=== PATIENT | male | born 1935 | race Caucasian/White ===

== ENCOUNTER 2018-02-28 13:25 | Inpatient (IN) | payer MEDICARE ==
[~2018-02-28] VITALS: Ht 175.3 cm; Wt 72.1 kg
[2018-02-28] MEDS ORDERED: NORVASC10 MG PO (13:49)
[2018-02-28] MEDS ORDERED: CRESTOR40 MG PO (13:50)
[2018-02-28] MEDS ORDERED: RANITIDINE HCL150 M1 PO (13:50)
[2018-02-28] MEDS ORDERED: TRIAMTERENE-HC1 EAC3 PO (13:51)
[2018-02-28] MEDS ORDERED: FOLIC ACID0.4 MG PO (13:52)
--- NOTE | 2018-02-28 19:30 | NUR ---
HANDOFF REPORT RECEIVED FROM RN PT TO ARRIVE TO MS FLOOR WITH NURSING STAFF.
--- NOTE | 2018-02-28 19:52 | NUR ---
VITALS AND I&OS DONE AND CHARTED. HELPED PT TO THE BATHROOM AND BACK TO BED. GOT HIS BED WEIGHT. BEDSIDE TABLE AND CALL LIGHT WITHIN REACH.
--- NOTE | 2018-02-28 20:11 | NUR ---
PT ARRIVES TO MS FLOOR WITH LIEN DUNAWAY VIA STRETCHER, 1P SBA TO TRANSFER FROM STRETCHER TO BED, UP TO RESTROOM FOR 400 ML VOID. IVF INFUSING WNL, GOOD BLOOD RETURN LINE FLUSHES EASILY. PT HARD OF HEARING, ALERT AND ORIENTED X 4. ABD SOFT, TENDER IN RLQ WITH PALPATION, PT RATES PAIN 5/10, "I'M OKAY". REFUSES PRN MEDICATIONS. BOWEL TONES ACTIVE X 4. PT ON NPO DIET AT THIS TIME, EDUCATION PROVIDED, PT VERBALIZES UNDERSTANDING, OKAY FOR SIPS WATER, ICE CHIPS. CALL LIGHT IN REACH. WILL CONTINUE TO MONITOR.
--- NOTE | 2018-02-28 20:37 | NUR ---
IN ROOM TO HANG IV FLUIDS. PT DENIES NEEDS AT THIS TIME. CALL LIGHT IS WITHIN REACH.
--- NOTE | 2018-02-28 21:55 | NUR ---
IN PT ROOM FOR ABT ADMINISTRATION, INFUSING WNL. PT GIVEN SIP OF WATER WITH PO MEDICATION. URINAL IN REACH, PT HAS NO ADDL REQUESTS. EDUCATION PROVIDED RE SAFETY, TO CALL PRIOR TO OOB, VERBALIZED UNDERSTANDING. BED ALARM ON FOR SAFETY. CALL LIGHT IN REACH.
--- NOTE | 2018-02-28 22:21 | NUR ---
ENTERED PT'S ROOM BECAUSE IV WAS BEEPING, PT DENIES NEEDS AT THIS TIME.
--- NOTE | 2018-03-01 00:26 | NUR ---
CALL LIGHT ANSWERED, SBA TO RESTROOM FOR 600 ML VOID, CLEAR YELLOW URINE. PT BACK TO BED, IVF INFUSING WNL. CALL LIGHT IN REACH. LIGHTS ON REQUESTED BY PT.
--- NOTE | 2018-03-01 01:24 | NUR ---
IN PT ROOM FOR IVF ADMINISTRATION, PT AWAKE, UNABLE TO SLEEP, PT STATES CHRONIC ISSUE. VITALS COMPLETE BP 116/70 (91), HR 65 REGULAR RHYTHM. SPO2 95% ON RA, LUNGS CLEAR THROUHGOUT ALL LOBES. PT STATES PAIN 4/10 "IMPROVED" IN RLQ, ABD TENDER W PALPATION. PT DENIES NAUSEA. BOWEL TONES ACTIVE X 4, ABD SOFT. IVF INFUSING WNL. PT HAS CALL LIGHT IN REACH, NO REQUESTS AT THIS TIME.
--- NOTE | 2018-03-01 03:44 | NUR ---
CHECKED ON PT, APPEARS TO BE SLEEPING, EYES CLOSED, BREATHING NON-LABORED, IVF INFUSING. LIGHTS OFF IN ROOM.
--- NOTE | 2018-03-01 04:43 | NUR ---
PT'S IV WAS BEEPING, HE DENIES NEEDS AT THIS TIME.
--- NOTE | 2018-03-01 05:10 | NUR ---
PT ARRIVES TO MS FLOOR AT 2010, SBA IN ROOM. QUANTITY SUFFICIENT VOIDS. ABD SOFT, TENDER IN RLQ, BOWEL TONES ACTIVE THROUGHOUT SHIFT. IVF INFUSING WNL THROUGHOUT SHIFT. NPO WITH SIPS OF WATER WITH PO MEDS. PT DENIES NAUSEA, REFUSES PRN PAIN MEDICATIONS.
--- NOTE | 2018-03-01 05:29 | NUR ---
CALL LIGHT ANSWERED, SBA TO RESTROOM FOR 600 ML VOID AND BACK TO BED. GAIT STEADY. PT HAS NO REQUESTS AT THIS TIME. IVF INFUSING WNL. CALL LIGHT IN LAP. LIGHTS OFF IN ROOM.
--- NOTE | 2018-03-01 07:33 | NUR ---
HAND OFF RN NOTED THAT [facility] SENT A MESSAGE REGARDING RANITADINE DOSE LAST NIGHT. MEDICATION IS SCHEDULED FOR AM AND PM AT 0900 AND 2100. PHARAMCY CALLED TO VERIFY DOSE FOR THIS AM. PHARMACIST STATES TO GIVE 0900 DOSE SCHEDULED.
--- NOTE | 2018-03-01 07:49 | NUR ---
MORNING ASSESSMENT AND MEDICATIONS DUE. THIS RN TO BEDSIDE. DR. ROSEN AT BEDSIDE. PT STATES HE IS "FEELING BETTER" AND WANTS TO EAT. PT TALKING WITH MD ABOUT PLAN OF CARE. ASSESSMENT DONE. MEDICATIONS GIVEN ORDERED. PT REPORTS 3-4/10 PAIN AND THAT HE DOES NOT WANT PAIN MEDICATION AT THIS TIME. PT STATES HE HAS NO REQUESTS OR COMPLAINTS AT THIS TIME. PT VERBALIZES UNDERSTANDING THAT HE SHOULD CALL THE NURSE IF HE HAS A BOWEL MOVEMENT FOR SAMPLE COLLECTION. BED RAILS UP. CALL LIGHT WITHIN REACH.
--- NOTE | 2018-03-01 07:51 | NUR ---
PATIENT RESTING IN BED, RN IN ROOM. PATIENT WASHED HANDS AND FACE WITH WARM WASH CLOTH. PATIENT DENIED ORAL CARE, STATED HIS TEETH WERE AT HOME AND HE DOESNT LIKE TO USE MOUTHWASH. PATIENT STATED HE DIDNT WANT TO SHOWER TODAY HE PLANS ON GOING HOME THIS AFTERNOON. CALL LIGHT IN REACH. NO OTHER NEEDS AT THIS TIME.
--- NOTE | 2018-03-01 09:32 | NUR ---
PATIENT RESTING IN BED. PATIENT REFUSED TO GET UP TO BATHROOM STATING THAT HE HASNT HAD TO GO. THIS PHOTOCOPIER TECHNICIAN WILL REAPROACH AT A LATER TIME. CALL LIGHT IN REACH. NO OTHER NEEDS AT THIS TIME.
--- NOTE | 2018-03-01 10:30 | NUR ---
THIS RN TO ROOM TO CHECK ON PT. PT STATES HE IS "JUST RESTING." CLEAR LIQUID TRY ORDERED FOR PT. PT STATES HE IS WILLING TO TRY THE CLEAR LIQUIDS AND "MAYBE GET UP TO CHAIR AFTER THAT." PT ENCOAURGED TO GET UP WITH FISH BONING MACHINE FEEDER TODAY AND EAT WHAT HE CAN. MEDICATION GIVEN (SEE MAR). PT WATCHIGN TV AND TRYING CLEARS. BED RAILSUP. CALL LIGHT WITHIN REACH.
--- NOTE | 2018-03-01 11:12 | NUR ---
PT CALL LIGHT ON. PT STATES HE IS DONE EATING. PT ATE BROTH, JELLO AND JUICE. PT DENIES NAUSEA AT THIS TIME AND STATE HIS PAIN "BETTER THAN IT WAS." PT CONTINUES TO RATE HIS PAIN AT 3-10. FOCUSED ASSESSMENT DONE. PT ADVISED TO SPEND SOME TIME IN THE CHAIR. PT AGREES AND IS ASSISTED UP TO CHAIR. PT WATCHING TV, NO REQUESTS OR COMPLAINTS. CALL LIGHT WITHIN REACH.
--- NOTE | 2018-03-01 11:25 | NUR ---
PTS ON PHONE. THIS RN SPOKE WITH TO UPDATE HER. STATES SHE WILL BE COMING IN SOON AND STATES HER QUESTIONS HAVE ALL BEEN ANSWERED.
[2018-03-01] MEDS ORDERED: ASPIR-LOW81 MG PO (11:38)
--- NOTE | 2018-03-01 13:38 | NUR ---
PT RESTING IN BED, TV OFF RM QUIET. PT STATED THAT HE DIDN'T SLEEP WELL LAST NIGHT AND WAS GOING TO TRY AND TAKE A NAP. I EXTENDED A BLESSING AND LET PT KNOW I WILL COME BACK ANOTHER TIME. HE THANKED ME, WILL FOLLOW NEEDED
--- NOTE | 2018-03-01 14:07 | NUR ---
ABX DUE. THIS RN TO BEDSIDE. PT VISITING WITH FAMILY. EDUCATION REGARDING PTS CONDITION DONE. PT AND FAMILY VERBALIZE UNDERSTANDING. ABX STARTED. INFUSING VIA IV PUMP WITH NS FLUSH. PT CALL LIGHT WITHIN REACH. BED RAILS UP.
--- NOTE | 2018-03-01 17:52 | NUR ---
THIS GASOLINE TESTER ASSISTED PATIENT UP TO BATHROOM, BACK TO BED. PATIENT STATES HE HAS THE "GI THING GOING AGAIN" AND IS CONCERNED ABOUT IT MAKING HIM SICK AGAIN. RN NOTIFIED. RN IN ROOM. PATIENT CALL LIGHT IN REACH. NO OTHER NEEDS AT THIS TIME.
--- NOTE | 2018-03-01 18:01 | NUR ---
AFTERNOON ASSESSMENT DUE. THIS RN TO BEDSIDE. PT UP TO TOILET. PT STATES THAT HE'S HAVEING "MORE GI'S" WHEN ASKED TO EXPLAIN PT REPORTS FREQUENT LOOSE BOWEL MOVMENTS. PT STATES "THERE ISN'T PAIN LIKE BEFOR BUT THIS IS HOW IT ALL STARTED." ASSESSMENT DONE. NEW BAG OF FLUIDS HUNG. PT SIPPING AT CLEAR LIQUID TRAY. PT STATES HE HAS NO ADDITIONAL REQUESTS OR COMPLAINTS AT THIS TIME. CALL LIGHT WITHIN REACH. BED RAILS UP.
--- NOTE | 2018-03-01 18:33 | NUR ---
PT HERE FOR RLQ ABDOMINAL PAIN. STOOL SAMPLE SENT TODAY. PT UPGRADED TO CLEAR LIQUID DIET TODAY. TOLEARTING W/O NAUSEA BUT DIARRHEA STARTED AGAIN THIS EVENING. D5 LR AT 65ML/HR RUNNING IN R AC PIV. PT VERY HARD OF HEARING. STAND BY ASSIST. USES CALL LIGHT APPROPRIATLY. BLOOD PRESSURE HAS TRENDED DOWN TODAY. CONTINUE TO MONITOR.
--- NOTE | 2018-03-01 18:38 | NUR ---
AFTER HOURS PHARMACY CALLED STATING THAT THEY RECIEVED A COPY OF THE MED LIST THAT WAS BROUGHT IN BY PTS TODAY. PHARMACY STATES THAT THIS LIST WILL BE LEFT FOR THE AM ON SITE PHARAMACISTS TO RECONCILE IN THE MORNING. CHARGE NURSE CONSULTED AND AGREEABLE TO THIS PLAN OF ACTION.
--- NOTE | 2018-03-01 19:20 | NUR ---
BEDSIDE REPORT RECEIVED FROM NILESH GUPTA. PT APPEARS TO BE SLEEPING, EYES CLOSED, BREATHING NON-LABORED, HARD OF HEARING, DOES NOT AWAKEN. IVF INFUSING WNL.
--- NOTE | 2018-03-01 20:28 | NUR ---
CALL LIGHT ANSWERED, SBA BACK TO BED FROM RESTROOM. PT REPORTS LIQUID BM, PT FLUSHED TOILET, INSTRUCTED BY RN TO LEAVE STOOL FOR OBSERVATION, VERBALIZED UNDERSTANDING. CALL LIGHT IN REACH, IVF INFUSING WNL.
--- NOTE | 2018-03-01 21:50 | NUR ---
IN PT ROOM FOR ABT ADMINISTRATION. PT ASSESSMENT COMPLETE, LUNGS CLEAR THORUGHOUT ALL LOBES, PT EDUCATION PROVIDED REGARDING INCENTIVE SPIROMETER, DEMONSTRATED USE 1700 ML BEST EFFORT. PT DENIES ANY PAIN, DENIES NAUSEA. BOWEL TONES HYPERACTIVE X 4, ABD SOFT, NONTENDER W PALPATION. IV ABT INFUSING WNL. SBA TO RESTROOM FOR DIARRHEA, BROWN IN COLOR, AND CLEAR YELLOW VOID. CALL LIGHT IN REACH, LIGHTS OFF IN ROOM.
--- NOTE | 2018-03-02 00:20 | NUR ---
CHECKED ON PT, IV PUMP BEEPING, NOW INFUSING WNL. PT APPEARS TO BE SLEEPING EYES CLOSED, BREATHING NON-LABORED. LIGHTS OFF IN ROOM.
--- NOTE | 2018-03-02 01:35 | NUR ---
PHONE CALL FROM PTS , WOKE UP CONCERNED FOR PT, UPDATED NACHO ON PT'S NIGHT, UP TO RESTROOM WITH LIEN REDMOND AT THIS TIME.
--- NOTE | 2018-03-02 03:30 | NUR ---
CHECKED ON PT, APPEARS TO BE SLEEPING, EYES CLOSED, BREATHING NON-LABORED. IVF INFUSING, LIGHTS OFF IN ROOM.
--- NOTE | 2018-03-02 05:15 | NUR ---
SBA TO RESTROOM FOR VOIDS. LOOSE BMS X 3 THIS SHIFT. PT HAS DENIED NAUSEA, DENIED PAIN THROUGHOUT SHIFT. BOWEL TONES HYPERACTIVE X 4, ABD SOFT. IVF INFUSING WNL. MINIMAL PO INTAKE. USING CALL LIGHT APPROPRIATELY. ORIENTED X 3, HARD OF HEARING.
--- NOTE | 2018-03-02 05:42 | NUR ---
IV ABT INFUSING AT THIS TIME. PT AWAKE, ALERT. BOWEL TONES ACTIVE X 4, ABD SOFT, PT DENIES PAIN, DENIES NAUSEA. LUNGS CLEAR THROUGHOUT ALL LOBES, HR REGULAR RHYTHM. CSM INTACT BUE, BLE, NO EDEMA NOTED. PT DENIES TOILETING NEEDS AT THIS TIME. CALL LIGHT IN REACH, NO ADDL REQUESTS.
--- NOTE | 2018-03-02 06:54 | NUR ---
CALL LIGHT ANSWERED, SBA TO RESTROOM, PT INSTRUCTED TO USE CALL LIGHT WHEN FINISHED, VERBALIZED UNDERSTANDING. IVF INFUSING.
--- NOTE | 2018-03-02 08:49 | CONS ---
[facility] [address], [place] [address] Signed DATE OF CONSULTATION: 03/01/2018 CHIEF COMPLAINT: Right lower quadrant abdominal pain. 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 He lives with his , Amrita. He went through some a few days of diarrhea and was not feeling particularly well that seemed to be getting better and he was trying to eat, but he was having right-sided abdominal pain. He went about 3 days and really had little or nothing to eat. He finally came to emergency room for evaluation. In the emergency room, his white count was up a little bit at 13.1 with some tenderness in right lower quadrant. His lactic acid was normal at 0.9. BUN and creatinine were up a little bit at [address] scan of the abdomen and pelvis was performed without contrast. It looks like there is some thickening to the cecum with some very mild pericecal inflammation. He also has significant chronic diverticular disease, small bilateral inguinal hernias, and some degenerative disk disease at L4-L5. He was admitted to the Internal Medicine Service, given IV fluids and Rocephin and Flagyl. I was asked to see him in consultation as a general surgeon. He said this morning he is feeling better. He has a little or no pain in the right lower quadrant and was asking to eat. PAST MEDICAL HISTORY: Chronic renal failure, brain aneurysm, skin cancer, hypertension, gastroesophageal reflux disease, diverticulosis, and nephrolithiasis. 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 SOCIAL HISTORY: He does not smoke or drink. He is to Amrita at [phone]. They live in a house and they both drive. He has 4 children and 2 stepchildren. 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 She is a family nurse practitioner with the [facility], [facility]. They prefer the [facility] here in town. FAMILY HISTORY: Mom of old age. Dad of mustard gas. REVIEW OF SYSTEMS: He had 10 systems reviewed and he said no metal in the body. ALLERGIES: None. Electronically Signed By: DOLLY ROSEN MD 03/02/18 0849 PATIENT NAME: DAVID JOHNSON CONSULTATION DATE OF : 37 REPORT #: [id number] PHYSICIAN: DOLLY ROSEN MD PCP: INA LEE REPORT IS CONFIDENTIAL AND NOT TO BE RELEASED WITHOUT AUTHORIZATION [facility] [address], [place] [address] Signed MEDICATIONS: Amlodipine, Crestor, Zantac, Dyazide, and folate. PHYSICAL EXAMINATION: VITAL SIGNS: Blood pressure 110/60, heart rate 56, respiratory rate 16, temperature is 98.1, and saturation is 95% on room air. He is 5 feet 9 inches and 72 kg. GENERAL: David is an 82-year-old gentleman, lying supine in his hospital bed. He is clearly hard of hearing. He does not appear systemically ill or toxic. LUNGS: Clear to auscultation bilaterally. HEART: Regular rate and rhythm. ABDOMEN: Soft and flat with a small reducible umbilical hernia. No more than 8 to 10 mm in diameter. He has very minimal tenderness in the right lower quadrant even to deep palpation. LABORATORY DATA: His white blood cell count was 13.1. It is now 10.5. Hemoglobin 12 and neutrophils are 74, they were 75. His BUN is 30 and his creatinine is 1.7. Lactic acid 0.9 and albumin 3.9. Urine culture is pending. RADIOGRAPHIC STUDIES: CT scan of the abdomen and pelvis is reviewed along with the report. He appears to have some cecal thickening with a little bit inflammation around the cecum. He has significant sigmoid diverticulosis. He has small bilateral inguinal hernias and he has L4-L5 degenerative disk disease. ASSESSMENT AND PLAN: David is an 82-year-old gentleman, who has unspecified cecal colitis, most likely a postinfectious tissue, but it could be complicated by some ischemia. Given his lack of intake for 3 days and his age. At this point, he has been admitted given IV fluids and antibiotics and already feeling better. I think we will align clear liquids today and if he does well, we can consider a bowel prep and colonoscopy here in a day or two. I have reviewed this with David. He has expressed understanding and agrees with above plan. Dolly Rosen MD ALB/MODL /[id number] Electronically Signed By: DOLLY ROSEN MD 03/02/18 0849 PATIENT NAME: DAVID JOHNSON CONSULTATION DATE OF : 37 REPORT #: [id number] PHYSICIAN: DOLLY ROSEN MD PCP: INA LEE REPORT IS CONFIDENTIAL AND NOT TO BE RELEASED WITHOUT AUTHORIZATION [facility] [address] [place], [place] [address] Signed cc: MAHNAZ Grider Copies: INA LEE ~ Electronically Signed By: DOLLY ROSEN MD 03/02/18 0849 PATIENT NAME: DAVID JOHNSON CONSULTATION DATE OF : 37 REPORT #: [id number] PHYSICIAN: DOLLY ROSEN MD PCP: INA LEE REPORT IS CONFIDENTIAL AND NOT TO BE RELEASED WITHOUT AUTHORIZATION
--- NOTE | 2018-03-02 09:14 | NUR ---
MORNING ASSESSMENT AND MEDICATION DUE. THIS RN TO BEDSIDE. PT RESTING WITH EYES CLOSED RR = 16 BPM. PT AWAKENS TO VOICE. PT CONCERNED ABOUT "WHY DO I STILL HAVE THESE GI'S." PT DENIES PAIN BUT REPORTS LOOSE BMS. PT REPORTS "NO APPITITIE." THIS RN NOTES THAT PT ATE JELLO FROM [employer] BREAKFAST TRAY BUT DID NOT DRINK ANY THING ELSE. JUICE OFFERED. PT DECLINES STATING "I JUST DON'T WANT ANYTHING." ASSESSMENT DONE. MEDICAITON GIVEN (SEE MAR). PT STATES HE WOULD LIKE TO TAKE A NAP. BED RAILS UP. CALL LIGHT WITHIN REACH.
--- NOTE | 2018-03-02 10:47 | NUR ---
MEDICATION DUE. THIS RN TO BEDSIDE. PT UP WITH INTERNATIONAL MARKETING COORDINATOR PREPARING FOR SHOWER. MEDICATION GIVEN ORDERED. PT ENCOAURGED TO DRINK MORE FLUIDS. INTERNATIONAL MARKETING COORDINATOR WORKING WITH PT FOR SHOWER.
--- NOTE | 2018-03-02 11:19 | NUR ---
QUARANTINE INSPECTOR INFORMS THIS RN THAT PT IS FINISHED WITH SHOWER. PIV ASSESSED, IV FLUIDS RESTARTED. BED LINENS CHANGED. NEW IV FLUIDS HUNG. WATER REFILLED. MD AT BEDSIDE DISCUSSING COLONOSCOPY FOR TOMORROW. PT STATES HE HAS NO ADDITIONAL QUESTIONS OR CONCERNS AT THIS TIME. CALL [facility] WITHIN REACH.
--- NOTE | 2018-03-02 11:24 | NUR ---
FOCUSSED ASSESSMENT DUE. THIS RN TO BEDSIDE. PT WATCHING TV. FLUIDS ENCOURAGED. ASSESSMENT DONE. PT DENIES ABDOMINAL PAIN BUT CONTINUES TO REPORT INCREASED FREQUENCY OF BM'S. PT STATES BM'S ARE LIQUID "LIKE THE WATER JUST GOES STRAIGHT THROUGH ME." PT VERBALIZES UNDERSTANDING OF PLAN OF CARE. NO REQUESTS OR COMPLAINTS AT THIS TIME. CALL LIGHT WITHIN REACH. PT WATCHING TV.
--- NOTE | 2018-03-02 11:59 | NUR ---
CLEAR ENSURE PROVIDED FOR PT PER MD ORDER. PT ENCOUARED TO AMBULATE. PT STATES HE WOULD BE WILLING TO GO FOR A WALK IN "A FEW MINUTS, AFTER I USE THE RESTROOM." PT ASSISTED TO RESTROOM. CALL LIGHT WITHIN REACH.
--- NOTE | 2018-03-02 12:12 | NUR ---
THIS RN TO CHECK ON PT. PT FINISHED WITH 1ST CLEAR ENSURE. NEW BOTTLE PROVIDED. PT STATES HE HAS NO REQUESTS OR COMPLAINTS. CALL LIGHT WITHIN REACH.
--- NOTE | 2018-03-02 12:46 | NUR ---
MEDICATIONS DUE. THIS RN TO BEDSIDE. MEDICATIONS GIVEN. PT VERBALIZES UNDERSTANDING OF MEDICATIONS AND THAT HE WILL NEED TO DRINK ALL THE GATORADE TODAY. PT WORKING ON DRINKING GATORADE AND CLEAR ENSURE. CALL LIGHT WITHIN REACH. PT ANTICIPATING VISIT FROM .
--- NOTE | 2018-03-02 13:51 | NUR ---
THIS RN TO ROOM TO GIVE PT EDUCATION R/T COLONOSCOPY PROCEDURE. EDUCATION GIVEN TO PT. PT VERBALIZES UNDERSTANDING AND STATE HE WILL READ THE INFORMATION. PT COMPLAINTS OF PAIN AT IV SITE. INFUSION STOPPPED. PIV ASSESSED, INFLAMATION AND LEAKING NOTED. PIV DC'D PER PROTOCOL . NEW PIV STARTED PER PROTOCOL. INFUSION RESTARTED. MAGNESIUM INFUSING CONCURRENTLY WITH NS. PT REPORTS NO PAIN AT SITE. BLOOD RETUR NOTED WITH IV START. PT READING COLONOSCOPY PAMPHLET. NO REQUETS OR COMPLAINTS AT THIS TIME. CALL [facility] WITHIN REACH.
--- NOTE | 2018-03-02 14:22 | NUR ---
PATIENT AMBULATED IN HALLWAY TOLARATED WELL. PATIENT BACK TO CHAIR. CHARGE NURSE AND SALES DEPARTMENT MANAGER IN ROOM.
--- NOTE | 2018-03-02 14:41 | NUR ---
PT HAD BEEN FOR A WALK-SEEMED TO REALLY ENJOY GETTING OUT OF HIS RM. HAVING TROUBLE SLEEPING AT NIGHT-HIS HAS GOT HIM IN THE HABIT OF BEING UP MOST OF THE NIGHT, AND SLEEPING IN UNTIL THE EARLY AFTERNOON. HE STATED HIS PAIN SEEMS TO BE WELL UNDER CONTROL, BUT IS STILL HAVING "GI PROBLEMS" PT PUT IT. PT MENTIONED THAT HE HAS A SCOPE SCHEDULED FOR TOMORROW-HAS BEGUN PREP. HE HOPES IT WILL GIVE SOME ANSWERS. EXTENDED A BLESSING, WILL FOLLOW NEEDED
--- NOTE | 2018-03-02 16:19 | NUR ---
PUMP ALARMING, INFUSION COMPLETE. PT UP TO CHAIR. FAMILY AT BEDSIDE. PIV ASSESSED, WNL. IV FLUIDS RESUMED. AFTERNOON ASSESSMENT DONE. EDUCATION PROVIDED FOR FAMILY R/T NUTRITION, ENSURE AND OPTIONS FOR CALORIES AT HOME. PT FINISHED WITH 2ND ENSURE. 3RD ENSURE PROVIDED. PT STATES "THESE TASTE REALLY GOOD." CALL LIGHT WITHIN REACH. PT STATES HE HAS NO ADDITIONAL REQUESTS AT THIS TIME.
--- NOTE | 2018-03-02 17:53 | NUR ---
PT HERE FOR ABDOMINAL PAIN AND DIARRHEA. NPO AT MIGHTNIGHT. CLEARS WITH CLEAR ENSURE UNTIL THAT TIME. ENCOUARGE FLUIDS. C-SCOPE SCHEDULED FOR TOMORROW. BOWEL PREP FINISHED. PT DENIES PAIN AND NAUSEA TODAY. USING CALL LIGHT APPROPRIATLY.
--- NOTE | 2018-03-02 19:30 | NUR ---
BEDSIDE REPORT RECEIVED FROM NILESH GUPTA, PT APPEARS TO BE SLEEPING, EYES CLOSED, BREATHING NON-LABORED, IVF INFUSING, CALL LIGHT WITH PT. WILL CONTINUE TO MONITOR.
--- NOTE | 2018-03-02 22:15 | NUR ---
PT ASSESSMENT COMPLETE AT THIS TIME, IV FLAGYL INFUSING WNL, IV FLUSHED WNL. PT DENIES PAIN, DENIES NAUSEA. PT C/O DIARRHEA, READY FOR SCOPE TOMORROW. PT REFUSES ENSURE DRINK. ENCOURAGED TO DRINK WATER, NPO AT MIDNIGHT, VERBALIZED UNDERSTANDING, GIVEN FRESH ICE WATER. LUNGS CLEAR THROUGHOUT ALL LOBES. BOWEL TONES ACTIVE X 4, ABD SOFT. SBA TO RESTROOM AT THIS TIME. INSTRUCTED TO USE CALL LIGHT, PT VERBALIZES UNDERSTANDING.
--- NOTE | 2018-03-03 00:25 | NUR ---
CHECKED ON PT, PT AWAKE, LYING IN BED, SBA TO RESTROOM, PT INSTRUCTED TO USE CALL LIGHT WHEN FINISHED, VERBALIZED UNDERSTANDING.
--- NOTE | 2018-03-03 00:39 | NUR ---
CALL LIGHT ANSWERED, SBA BACK TO BED, PT HAD LIQUID BM AND 325 ML VOID. IVF INFUSING.
--- NOTE | 2018-03-03 02:30 | NUR ---
CHECKED ON PT, APPEARS TO BE SLEEPING, EYES CLOSED, BREATHING NON-LABORED, IVF INFUSING. LIGHTS OFF IN ROOM.
--- NOTE | 2018-03-03 05:31 | NUR ---
PT BACK IN BED FROM RESTROOM WITH LIEN REDMOND. DENIES PAIN, DENIES NUASEA. BOWEL TONES HYPERACTIVE AT THIS TIME. ABDOMEN SOFT, NON-TENDER. IVF INFUSING WNL. FLAGYL NOW INFUSING. CALL LIGHT IN REACH. PT NPO. NO ADDL REQUESTS.
--- NOTE | 2018-03-03 06:02 | NUR ---
FLAGYL INFUSION COMPLETE, LINE FLUSHED WNL, IVF NOW INFUSING. PT AWAKE, CONSENT FOR COLONOSCOPY OBTAINED. PT VERBALIZED UNDERSTANDING, NO QUESTIONS FOR MD. CALL LIGHT IN REACH.
--- NOTE | 2018-03-03 06:09 | NUR ---
PT IN BED THROUGHOUT SHIFT, IVF INFUSING WNL. IV ANTIBIOTICS. SBA TO RESTROOM FOR 2 LOOSE BMS, QS VOIDS. BOWEL TONES HYPERACTIVE X 4, ABD SOFT, HAS DENIED NAUSEA, DENIED PAIN THROUGHOUT SHIFT. HARD OF HEARING. CONSENT SIGNED FOR COLONOSCOPY.
--- NOTE | 2018-03-03 07:45 | NUR ---
PATIENT RESTING IN BED EYES CLOSED. PATIENT STARTLED UPON THIS RUBBER STAMP ASSEMBLER KNOCKING AND ENTERING. PATIENT WASHED HANDS AND FACE WITH WARM WASH CLOTH. PATIENT STATES HE WOULD LIKE TO REST SOME MORE. PATIENT CALL LIGHT IN REACH. NO OTHER NEEDS AT THIS TIME.
--- NOTE | 2018-03-03 08:00 | NUR ---
PT SITTING UP IN BED WATCHING TV. [place] BUT COMMUNICATES NEEDS WITHOUT DIFFICULTY, ALERT AND ORIENTED. DENIES PAIN OR NAUSEA. IV INFUSING WNL. ASSESSMENT COMPLETED. PT DENIES NEEDS OR CONCERNS AT THIS TIME. CALL LIGHT WITHIN REACH.
--- NOTE | 2018-03-03 10:32 | NUR ---
THIS VOCATIONAL TRAINING TEACHER ASSISTED PATIENT UP TO BATHROOM, BACK TO BED. PATIENT HAD INCONTINENCE EPISODE WITH DARK COLORED STOOLS. RN NOTIFIED. PATIENT RESTING, CALL LIGHT IN REACH. NO OTHER NEEDS AT THIS TIME.
--- NOTE | 2018-03-03 11:00 | NUR ---
PT SITTING UP IN BED WATCHING TV. STATES "I FELT LIKE I WAS GONNA THROW UP BUT IT PASSED, I'M FINE NOW." CALL LIGHT WITHIN REACH.
--- NOTE | 2018-03-03 12:24 | NUR ---
PATIENT RESTING IN BED, WAITING FOR COLONOSCOPY. CALL LIGHT IN REACH, NO OTHER NEEDS AT THIS TIME.
--- NOTE | 2018-03-03 12:58 | NUR ---
PT TRANSFERRED INDEPENDENTLY TO [facility] AND SENT TO DAY SURGERY FOR COLONOSCOPY.
--- NOTE | 2018-03-03 13:10 | NUR ---
PATIENT OUT FOR OPERATION. LINENS CHANGED. ROOM STRAIGHTENED.
--- NOTE | 2018-03-03 15:10 | NUR ---
03/03/18 1510 Patrica Davalos 1448 PT ARRIVED IN PACU SLEEPY WITH NO C/O'S. ABD SOFT. 1455 OXYGEN DECREASED TO 1L VIA NC WITH SATS 98%. 1500 OXYGEN REMOVED. SATS 95% ON RA. 1510 SIPPING ON WATER.
--- NOTE | 2018-03-03 15:25 | NUR ---
PATIENT HAS RETURNED TO FLOOR, FAMILY IN ROOM VISITING. PATIENT CALL LIGHT IN REACH, NO OTHER NEEDS AT THIS TIME.
--- NOTE | 2018-03-03 15:46 | NUR ---
PT RETURNED FROM PACU, TRANSFERRED INDEPENDENTLY TO HOSPITAL BED. DENIES PAIN, NAUSEA, OR OTHER CONCERNS. ALERT AND ORIENTED. FAMILY AT BEDSIDE. CALL LIGHT WITHIN REACH.
--- NOTE | 2018-03-03 16:26 | NUR ---
PT SITTING UP IN BED EATING REG MEAL, HENRIK WELL. FAMILY AT BEDSIDE. CALL LIGHT WITHIN REACH.
--- NOTE | 2018-03-03 17:03 | NUR ---
PATIENT RESTING IN BED, RN IN ROOM. CALL LIGHT IN REACH. NO OTHER NEEDS AT THIS TIME.
--- NOTE | 2018-03-03 17:43 | NUR ---
PATIENT RESTING IN BED, CALL LIGHT IN REACH, FRESH ICE WATER AT BEDSIDE TABLE, NO OTHER NEEDS AT THIS TIME.
--- NOTE | 2018-03-03 18:25 | NUR ---
PT RESTING IN BED, EYES CLOSED, RESP EVEN AND UNLABORED.
--- NOTE | 2018-03-03 19:15 | NUR ---
SHIFT REPORT RECIEVED. PATIENT RESTING IN BED. APPEARS TO BE SLEEPING. RR 18. CALL LIGHT IN REACH.
--- NOTE | 2018-03-03 21:04 | NUR ---
EVENING MEDS GIVEN PER ORDER. PATIENT APPEARED TO BE SLEEPING. WOKE TO TOUCH. PATIENT HARD OF HEARING BUT IS AAOX4. HE DENIES PAIN. LUNGS ARE CLEAR. ABD IS MILDLY DISTENDED, NONTENDER, BOWEL SOUNDS ACTIVE. PATIENT DENIES NAUSEA, HAS STILL BEEN HAVING LOOSE BOWEL MOVEMENTS. CMS INTACT. IF FLUIDS INFUSING. AREA AT INSERTION SITE IS RED, BUT PATIENT DENIES PAIN. IV FLUSHES EASILY AND RETURNS BLOOD. PATIENT DENIES OTHER NEEDS. CALL LIGHT IN REACH.
--- NOTE | 2018-03-03 23:00 | NUR ---
PATIENT RESTING IN BED. DENIES ANY NEEDS. IV ABX HAVE FINISHED. IV SITE WNL. FLUIDS INFUSING PER ORDER. CALL LIGHT IN REACH.
--- NOTE | 2018-03-04 01:43 | NUR ---
STOOD BY PT HE WENT INTO THE BATHROOM. ASKED HIM TO PULL THE CALL LIGHT WHEN HE IS DONE AND I WOULD HELP HIM BACK TO BED. HE SAID OK. I HELPED HIM BACK TO HIS BED. BEDSIDE TABLE AND CALL LIGHT WITHIN REACH. PT NEEDS NOTHING ELSE AT THIS TIME.
--- NOTE | 2018-03-04 02:20 | NUR ---
PATIENT HAD GOTTEN UP WITH WASTE MACHINE OFFBEARER ASSIST TO GO TO THE BATHROOM. RN IN ROOM TO START TO BAG OF IV FLUIDS. IV SITE IS SLIGHTLY SWOLLEN, RED AREA NOTED ABOVE THE INSERTION SITE AND LEAKING NOTED. IV SITE DC. NEW IV IN RIGHT FOREARM. PATIENT TOLERATED WELL. IV FLUIDS RESTARTED. PATIENT DENIED FURTHER NEEDS.
--- NOTE | 2018-03-04 05:37 | NUR ---
PATIENT SLEPT WELL THROUGHOUT THE NIGHT. NO PAIN OR NAUSEA. TOLERATING REGULAR DIET. IF FLUIDS PER ORDER. IV ABX. NEW IV STARTED THIS AM. SBA TO BATHROOM, STEADY ON HIS FEET.
--- NOTE | 2018-03-04 05:55 | NUR ---
patient resting in bed. appears comfortable. denies any needs. menu provided to order breakfast. iv abx started per order.
--- NOTE | 2018-03-04 06:03 | NUR ---
VITALS AND I&OS DONE AND CHARTED. HELPED PT TO THE BATHROOM AND BACK TO BED. FRESH ICE WATER GIVEN. GARBAGES EMPTIED. BEDSIDE TABLE AND CALL LIGHT WITHIN REACH.
--- NOTE | 2018-03-04 07:39 | NUR ---
PATIENT UP IN BED, FRESH ICE WATER AT BEDSIDE. PATIENT DENIES ANY NEEDS AT THIS TIME, CALL LIGHT IN REACH
--- NOTE | 2018-03-04 08:19 | OR ---
[facility] [address], [place] [address] Signed DATE OF OPERATION: 03/03/2018 SURGEON: Dolly Rosen MD PREOPERATIVE DIAGNOSES: 1. Cecal colitis/inflammation. 2. Guaiac-positive stool. 3. Recent diarrhea. 4. Diverticulosis. POSTOPERATIVE DIAGNOSES: 1. Unspecified cecal mass. 2. Foornwi-ip-lskyhqes sigmoid diverticulosis. 3. Minimal internal hemorrhoids. PROCEDURE: Colonoscopy with cold biopsies of the cecum. ESTIMATED BLOOD LOSS: None. INDICATIONS: David is an 82-year-old gentleman who lives in his house and still drives and is to his , [place]. He was having some right-sided abdominal flank pain for 3 days after some recent diarrhea. He decided to come to the emergency room for evaluation. He is also known to have diverticulosis. In the ER, he had some minimal tenderness in the right lower quadrant along with a small umbilical hernia. On exam, initially his white count was 13,000, but rapidly came back to normal. He apparently has chronic renal failure, but with hydration that went away and his lactic acid was normal at 0.9. He underwent a CT scan of the abdomen and pelvis and there was thickening and inflammation to the cecum along with his diverticulosis and what looks like small bilateral inguinal hernias and some degenerative disk disease at L4-L5. I have been asked to consult David as a general surgeon on-call by our Internal Medicine Service. He has been on Rocephin and Flagyl and IV fluids and he has done quite nicely. His other stool studies have been negative so far. I explained to David that was a good idea since he was here, we will go ahead and put him through a bowel prep and do a colonoscopy for him while he was here. To my knowledge, I do not believe he has ever had a previous colonoscopy. I explained to him the nature of the colonoscopy along with its risks including, but not limited to gas bloating, crampy abdominal pain, bleeding, perforation, requiring surgery, and missed diagnosis. We also discussed the need for IV Electronically Signed By: DOLLY ROSEN MD 03/04/18 0819 PATIENT NAME: DAVID JOHNSON GENE OPERATIVE REPORT DATE OF : 37 REPORT #: [id number] PHYSICIAN: DOLLY ROSEN MD PCP: GILMA ALICIA REPORT IS CONFIDENTIAL AND NOT TO BE RELEASED WITHOUT AUTHORIZATION [facility] [address], [place] [address] Signed conscious sedation. Given his advanced age and various medical issues, we asked that an anesthesia provider help us with increased monitoring and infusion of propofol. He had expressed understanding and wished to proceed. PROCEDURE NOTE: David was taken into our endoscopy suite and placed in the left lateral decubitus position. He was given IV sedation with propofol per our nurse certified green building engineer. A digital rectal exam was performed and this was not particularly concerning. His prostate was small and a bit indurated. The adult colonoscope was then introduced and advanced quite readily around into the cecum itself. It took just a little extra sedation, a little abdominal compression in order to get the scope down the right colon. In the cecum, he had this inflamed, irritated, somewhat ulcerated mucosa that was indurated as well. It is a little concerning obviously. We went ahead and took multiple biopsies of this area and some of that actually came onto the edge of the ileocecal valve. We took a biopsy of that as well. After that, the scope was slowly withdrawn. His prep was good. We saw some diverticula in his sigmoid colon. The rectum was unremarkable. Upon retroflexion of the scope, he has very minimal internal hemorrhoid columns. After this, the gas was suctioned out. The colonoscope removed. David tolerated the procedure quite well. RECOMMENDATIONS: David will go back to his room and put back on diet. I suspect to be home in a day or two. He will follow up my office in a week or so after discharge and we will look at the biopsies together. Dolly Rosen MD [facility] /[id number] cc: MAHNAZ Grider Copies: GILMA ALICIA Electronically Signed By: DOLLY ROSEN MD 03/04/18 0819 PATIENT NAME: DAVID JOHNSON OPERATIVE REPORT DATE OF : 37 REPORT #: [id number] PHYSICIAN: DOLLY ROSEN MD PCP: GILMA ALICIA REPORT IS CONFIDENTIAL AND NOT TO BE RELEASED WITHOUT AUTHORIZATION [address] [address] Signed ~ Electronically Signed By: DOLLY ROSEN MD 03/04/18 0819 PATIENT NAME: DAVID JOHNSON [facility] OPERATIVE REPORT DATE OF : 37 REPORT #: [id number] PHYSICIAN: DOLLY ROSEN MD PCP: GILMA ALICIA REPORT IS CONFIDENTIAL AND NOT TO BE RELEASED WITHOUT AUTHORIZATION
--- NOTE | 2018-03-04 08:20 | NUR ---
PATEINT FINISHED WITH BREAKFAST. PATIENT IS EAGER TO BE DISCHARGED, THIS SEMICONDUCTOR WAFERS MARKER WAS TOLD BY DR REID IT WOULD PROBALY BE BETWEEN 10 AND 11AM TODAY, PATIENT NOTIFIED. CALL LIGHT IN REACH
--- NOTE | 2018-03-04 08:44 | NUR ---
FULL BODY ASSESMENT DONE, PATIENT SITTING UP IN BED. DISCUSSED DISCHARGE TODAY. ANSWERED QUESTIONS AND CONCERNS. CALL LIGHT WITHIN REACH.
[2018-03-04] MEDS ORDERED: CIPROFLOXACIN500 MG PO (09:22)
[2018-03-04] MEDS ORDERED: METRONIDAZOLE500 MG PO (09:23)
--- NOTE | 2018-03-04 09:53 | NUR ---
PATIENT UP IN CHAIR,VITALS AND I/OS CHARTED. CALL LIGHT IN REACH, NO OTHER NEEDS AT THIS TIME
== END 2018-03-04 11:10 | disposition home or self-care (01) | DRG 391 ==
LOC: ED 13:25 → MS 19:19
PROVIDERS: Colon & Rectal Surgery; ADMIT Internal Medicine
PROC: 0DBH8ZX Excision of Cecum, Via Natural or Artificial Opening Endoscopic, Diagnostic (ICD-10-PCS; principal; 2018-03-03 11:45)
DX: A09 Infectious gastroenteritis and colitis, unspecified (principal); K55.039 Acute (reversible) ischemia of large intestine, extent unspecified; K52.89 Other specified noninfective gastroenteritis and colitis; K57.30 Diverticulosis of large intestine without perforation or abscess without bleeding; K64.8 Other hemorrhoids; K63.89 Other specified diseases of intestine; E87.6 Hypokalemia; I12.9 Hypertensive chronic kidney disease with stage 1 through stage 4 chronic kidney disease, or unspecified chronic kidney disease; N18.3 Chronic kidney disease, stage 3 (moderate); K21.9 Gastro-esophageal reflux disease without esophagitis; E78.5 Hyperlipidemia, unspecified; Z87.891 Personal history of nicotine dependence; Z79.82 Long term (current) use of aspirin; Z79.899 Other long term (current) drug therapy
CPT/HCPCS: 36415; 74176; 80048; 80053; 81001; 82274; 82378; 83605; 83735; 84100; 85025; 87045; 87046; 87077; 87088; 87177; 87186; 87205; 87209; 87493; 88305; J0696; J1650; J2704; J3475; J7030; J7120

== ENCOUNTER 2018-10-27 10:49 | Day surgery (SDC) | payer OTHER ==
[~2018-10-27] VITALS: Ht 175.3 cm; Wt 78.7 kg
[~2018-10-27 10:49] MED LIST: ASPIR-LOW81 MG PO; CIPROFLOXACIN500 MG PO; CRESTOR40 MG PO; FOLIC ACID0.4 MG PO; METRONIDAZOLE500 MG PO; NORVASC10 MG PO; NORVASC5 MG PO; RANITIDINE HCL150 M1 PO; TRIAMTERENE-HC1 EAC3 PO
--- NOTE | 2018-10-27 13:00 | NUR ---
10/27/18 1300 Patrica Davalos 1229 PT ARRIVED IN PACU SLEEPY LAYING PRONE. BANDAIDE ON LOWER BACK CDI. 1240 REPOSITIONED PT TO BACK. NO C/O'S. 1245 OXYGEN REMOVED. SATS 97% ON RA. 1255 PT GETTING DRESSED. TC TO WITH NO ANSWER. 1300 DC INSTRUCTIONS GIVEN. TO DS ROOM 7 TO WAIT FOR RIDE.
== END 2018-10-27 13:00 | disposition home or self-care (01) ==
LOC: OPS 10:49 → DS 10:49 → OPS 12:00
PROVIDERS: Specialist
PROC: 079T3ZX Drainage of Bone Marrow, Percutaneous Approach, Diagnostic (ICD-10-PCS; 2018-10-27)
PROC: 07DR3ZX Extraction of Iliac Bone Marrow, Percutaneous Approach, Diagnostic (ICD-10-PCS; principal; 2018-10-27 12:00)
DX: I12.9 Hypertensive chronic kidney disease with stage 1 through stage 4 chronic kidney disease, or unspecified chronic kidney disease (principal); N18.3 Chronic kidney disease, stage 3 (moderate); D63.1 Anemia in chronic kidney disease; K21.9 Gastro-esophageal reflux disease without esophagitis; E78.5 Hyperlipidemia, unspecified; Z86.79 Personal history of other diseases of the circulatory system; Z79.899 Other long term (current) drug therapy
CPT/HCPCS: 36415; 85025; 99152; J2250; J3010; J7120

== ENCOUNTER 2022-10-31 16:21 | Inpatient (IN) | payer OTHER, MEDICARE ==
[~2022-10-31] VITALS: Ht 175.3 cm; Wt 68.1 kg
[2022-10-31] MEDS ORDERED: FAMOTIDINE20 MG PO (16:45)
[2022-10-31] MEDS ORDERED: VITAMIN C500 M4 PO (16:46)
[2022-10-31] MEDS ORDERED: LISINOPRIL10 MG PO (16:46)
--- NOTE | 2022-10-31 19:30 | NUR ---
THIS RN TO ED TO RECEIVED BEDSIDE REPORT AND TRANSFER PT TO MS ROOM. 1945IN MS ROOM. NILESH CAPONE IN TO ASSIST WITH ADMISSION. PT TRANSFERS SELF FROM STRETCHER TO BED SBA. IV FLUIDS STARTED AND INFUSING WNL. 2009 PT REQUESTING TO USE RESTOOM. SBA FROM BED TO RESTROOM. PT HAS SLOW AND SLIGHTLY UNSTEADY. STOOL SAMPLE AND URINE SAMPLE OBTAINED AND SENT TO LAB. SBA FROM RESTOOM BACK TO BED PT HAS SLOW STEADY GAIT RETURNING TO BED. VITALS COMPLETE. NO OTHER NEEDS FROM THIS RN AT THIS TIME. NILESH CAPONE STILL IN ROOM COMPLETING ADMISSION INFORMATION.
--- NOTE | 2022-10-31 19:48 | NUR ---
pt ARRIVED TO THE MEDSUR FLOOR AT THIS TIME VIA ED STRETCHER, SBA TO MS BED. IV SITE WNL, FLUIDS INFUSING DIRECTED. NACHO JOHNSON IN ROOM AND ASSISTING WITH ADMISSION HX, PER - pt HAS START OF SUSPECTED MEMORY LOSS. BED ALARM ON FOR SAFETY AND CALL LIGHT IN REACH. pt ORIENTED TO ROOM. PRIMARY RN OBTAINED URINE AND STOOL SAMPLE. INFORMATION ON ADVANCED DIRECTIVE ALSO PROVIDED TO PER REQUEST. C-DIFF SAMPLE PENDING, PRECAUTIONS IN PLACE. FRESH WATER PROVIDED AND POC DISCUSSED. QUESTIONS ANSWERED, WILL CONTINUE TO MONITOR.
--- NOTE | 2022-10-31 21:33 | NUR ---
ASSESSMENT COMPLETE. LUNG SOUNDS CLEAR IN RUL AND MARCIN. CRACKLES IN RLL AND LLL. HEART SOUNDS DISTANT. BOWEL TONES ACTIVE. REDDENED AREA TO COCCYX NOTED. PT REPORTS NO PAIN AT THIS TIME. PT A&O TO SELF, DATE, TOWN. WHEN ASKED IF PT KNEW WHAT HOSPITAL HE IS IN PT STATES "NO, I CAN NOT THINK OF IT." IV INFUSING WNL. PT HARD OF HEARING. PT HAS ONE HEARING AID IN RIGHT EAR. WHITE BOARD IN ROOM TO ASSIST WITH COMMUNICATING WITH PT. PT REQUESTING BELONGINGS BACK TO CHANGE HEARING AID BATTERIES. BELONGINGS BAG PROVIDED TO PT. PT CHANGES HEARING AID BATTERIES BY SELF. BELONGINGS BAG PLACED BACK IN CLOSET. PT REPROTS NO OTHER NEEDS AT THIS TIME. CALL LIGHT IN REACH. BED ALARM ON.
--- NOTE | 2022-10-31 21:52 | NUR ---
THIS RN TALKED WITH DR. CARBAJAL ASKING IF HE WOULD LIKE THE PT ON TELE. NO NEW ORDERS RECEIVED.
--- NOTE | 2022-10-31 23:02 | NUR ---
NACHO JOHNSON CALLED AND ASKED FOR pt UPDATE, UPDATE PROVIDED. QUESTIONS ANSWERED, EDUCATED THAT RESULT OF STOOL SAMPLE IS PENDING AND RESULTS WILL LIKELY NOT BE IN TONIGHT. POC FOR SHIFT ALSO DISCUSSED.
--- NOTE | 2022-11-01 00:55 | NUR ---
PT REPORTS NO NEEDS AT THIS TIME. OFFERED PT BLANKET, PT REFUSED. OFFERED TO TURN LIGHT OFF, PT REFUSED. CALL LIGHT IN REACH. BED ALARM ON.
--- NOTE | 2022-11-01 02:00 | NUR ---
IN ROOM TO OBTAIN VITALS AND I&Os. PT SITTING UP IN BED WITH EYES OPEN RR EVEN AND UNLABORED. PT RESPONDS WHEN ADDRESSED. PT REPORTS NEEDING TO USE THE RESTROOM. SBA FROM BED TO RESTROOM. URINE OUTPUT NOTED. NO BM NOTED. SBA FROM RESTROOM BACK TO BED. PT HAS SLOW STEADY GAIT. IV INFUSING WNL. PT STATES "I AM FEELING A LOT BETTER." ASSESSMENT COMPLETE. PT REPORTS NO PAIN AT THIS TIME. LUNG SOUNDS CLEAR IN RUL AND MARCIN. CRACKLES IN RLL AND LLL. BOWEL TONES ACTIVE. HEART SOUNDS DISTANT. NEW BAG OF FLUIDS STARTED, SEE MAR. UPDATED PT ON POC. LIGHT TURNED OFF FOR COMFORT PT STATES "THAT MIGHT HELP ME FALL ASLEEP." PT REPORTS NO OTHER NEEDS AT THIS TIME. CALL LIGHT IN REACH. BED ALARM ON. PT EDUCATED TO USE CALL LIGHT IF HE NEEDS ANYTHING. PT VERBALIZES UNDERSTANDING.
--- NOTE | 2022-11-01 06:34 | NUR ---
IN TO ROUND ON PT. PT RESTING IN BED WITH EYES CLOSED RR EVEN AND UNLABORED. PT AWAKENS WITH LIGHT TOUCH. VITALS AND I&Os COMPLETE. PT DENIES ANY PAIN AT THIS TIME. PT DENIES NEED TO VOID AT THIS TIME. PT DENIES ANY OTHER NEEDS AT THIS TIME. CALL LIGHT IN REACH. BED ALARM ON.
--- NOTE | 2022-11-01 09:00 | NUR ---
REPORT RECEIVED FROM NIGHT RN AND PT CARE RESUMED. PT. BROUGHT HEADPHONE SET HE IS VERY [place]. HE DENIES PAIN. EATING WELL AND TOLERATING PO FLUIDS. ASSESSMENT COMPLETED AND MEDS ADMINISTERED. PT. BROUGHT WATER AND ENCOURAGED TO DRINK. PT STATES HE IS FEELING "MUCH BETTER" LEFT RESTING WITH CALL LIGHT IN REACH AND ALARM ON.
--- NOTE | 2022-11-01 09:43 | NUR ---
CALLED AND UPDATE GIVEN. ROUNDED ON PT. HE STATES HE HAS NO NEEDS AT THIS TIME.
--- NOTE | 2022-11-01 11:40 | NUR ---
PT ASSISTED WITH ALARMING PUMP. DENIES NEEDS AT THIS TIME. ENCOURAGED TO DRINK WATER. LEFT RESTING WITH CURTAIN OPEN AND ALARM ON
--- NOTE | 2022-11-01 13:21 | NUR ---
KATYA HELD PER MD VERBAL ORDER DUE TO NO DIARRHEA. PT. ROUNDED ON AND ASSISTED TO BATHROOM WITH SBA. PT. VOIDED AND PATIENT SERVICES REPRESENTATIVE IN THE ROOM
== END 2022-11-01 14:30 | disposition home or self-care (01) | DRG 684 ==
LOC: ED 16:21 → MS 18:21
PROVIDERS: ADMIT Family Medicine; ATTEND Family Medicine
DX: N17.9 Acute kidney failure, unspecified (principal); Z20.822 Contact with and (suspected) exposure to COVID-19; I12.9 Hypertensive chronic kidney disease with stage 1 through stage 4 chronic kidney disease, or unspecified chronic kidney disease; N18.9 Chronic kidney disease, unspecified; R19.7 Diarrhea, unspecified; K21.9 Gastro-esophageal reflux disease without esophagitis; E83.42 Hypomagnesemia; E86.0 Dehydration; Z85.828 Personal history of other malignant neoplasm of skin; Z87.891 Personal history of nicotine dependence; Z79.899 Other long term (current) drug therapy
CPT/HCPCS: 36415; 80053; 81003; 83735; 84100; 85025; 87493; 96365; 99284-25; C9803; J3475; J7030; J7040; J7060; U0003

== ENCOUNTER 2024-06-01 23:34 | Emergency (ER) | payer OTHER, MEDICARE ==
[~2024-06-01] VITALS: Ht 175.3 cm; Wt 69.7 kg
[~2024-06-01 23:34] MED LIST changes: +FAMOTIDINE20 MG PO; +HYDROCHLOROTH12.5 MG PO; +LISINOPRIL10 MG PO; +NITROGLYCERIN0.4 MG SL; +VITAMIN C500 M4 PO
[2024-06-02 00:08] LABS: HEMATOCRIT 39.8 % (35.0-50.0); HEMOGLOBIN 13.2 g/dL (12.0-18.0); MCH 30.7 (27-36); MCHC 33.3 g/dl (30-36); MCV 92.3 fl (81-99); PLATELET COUNT 196 K/uL (140-440); RBC 4.31 M/ul (4.3-5.7)
[2024-06-02] MEDS ORDERED: ASPIRIN 81 MG CHEW PO ONE (00:15)
[2024-06-02 00:23] LABS: BANDS, MANUAL DIFF 4; BASOPHILS, MANUAL DIFF 1; EOSINOPHILS, MANUAL DIFF 2; LYMPHOCYTES, MANUAL DIFF 20; MONOCYTES, MANUAL DIFF 11; NEUTROPHILS, MANUAL DIFF 62
[2024-06-02 00:27] LABS: ALBUMIN 3.3 g/dL (3.4-5.0); ALBUMIN/GLOBULIN RATIO 0.77 (1.1-2.4); ANION GAP 14.8 (7-21); BILIRUBIN, TOTAL 0.2 ng/dL (0.2-1.0); BUN/CREATININE RATIO 15.56 (6.0-28.6); CALCIUM 9.3 mg/dL (8.5-10.1); CREATININE, SERUM 1.67 mg/dL (0.70-1.30); MAGNESIUM 1.6 mg/dL (1.8-2.4); POTASSIUM 3.8 mmol/L (3.5-5.1); PROTEIN, TOTAL 7.6 g/dL (6.4-8.2)
[2024-06-02] MEDS ORDERED: MAGNESIUM OXIDE 400 MG TABLET PO ONE (00:45)
[2024-06-02 02:30] VITALS: BP 1116/68
[2024-06-02] MEDS ORDERED: MAG-OXIDE400 MG PO (02:32)
--- NOTE | 2024-06-03 19:40 | EKG ---
[facility] [address] [facility] [place] [address] Signed Normal sinus rhythm Normal ECG When compared with ECG of 25-NOV-2023 07:26, TX interval has decreased Confirmed by Corey Holcomb MD ([id number]) on 06/03/2024 7:39:50 PM Electronically Signed By: COREY HOLCOMB MD 06/03/241939 PATIENT NAME: GABBIE JOHNSON IZZY Electrocardiogram DATE OF : 37 PHYSICIAN: COREY HOLCOMB MD REPORT #: [id number] REPORT IS CONFIDENTIAL AND NOT TO BE RELEASED WITHOUT AUTHORIZATION
== END 2024-06-02 02:45 | disposition home or self-care (01) ==
LOC: ED 23:34
PROVIDERS: Internal Medicine
DX: E83.42 Hypomagnesemia (principal); I10 Essential (primary) hypertension; K21.9 Gastro-esophageal reflux disease without esophagitis; Z79.899 Other long term (current) drug therapy; Z87.891 Personal history of nicotine dependence
CPT/HCPCS: 36415; 80053; 83735; 83880; 84484; 85025; 85379; 93005; 93010; 99285; A9270